=== PATIENT | female | born 1975 | race Caucasian/White ===

== ENCOUNTER 2017-09-23 15:15 | Inpatient (IN) | payer BC ==
[2017-09-23 15:39] VITALS: BMI 39.1
--- NOTE | 2017-09-26 21:27 | HP ---
DATE OF ADMISSION: 09/27/2017 CHIEF COMPLAINT: Menorrhagia and anemia. HISTORY OF PRESENT ILLNESS: This is a 42-year-old G2, P2 with an enlarged 16-week size uterus and hi story of menorrhagia to anemia, transfusion x1 earlier this year, unresponsive to medical management as well as likely endometrial polyp on endometrial biopsy that was otherwise benign. Patient has tri ed oral contraceptives as well as Lysteda and has monthly menses that last approximately 10 days. CURRENT MEDICATIONS: Vitamin B12, fiber supplements, iron b.i.d. PAST MEDICAL HISTORY: Obesity and anemia. GYNECOLOGIC HISTORY: No abnormal Paps, no STDs. PAST SURGICAL HISTORY: x2 and tubal ligation. INFORMATION CLERK HISTORY: She is G2, P2, largest baby is 10 pounds 6 ounces. SOCIAL HISTORY: Negative x3. FAMILY HISTORY: Negative. ALLERGIES: No known drug allergies. PHYSICAL EXAMINATION: VITAL SIGNS: Blood pressure 140/80, pulse 76, respirations 18, weight is 257 pounds, BMI is 40.3. GENERAL: No acute distress. CARDIAC: Regular rate and rhythm. LUNGS: Clear to auscultation bilaterally. ABDOMEN: Soft, obese, nontender, nondistended. EXTREMITIES: No edema, cyanosis or clubbing. ASSESSMENT AND PLAN: A 42-year-old G2, P2 with an enlarged uterus, menorrhagia to anemia, unresponsi ve to medical management desiring definitive management with hysterectomy. She has been counseled on robotic total laparoscopic hysterectomy, possible bilateral salpingo-oophorectomy ideally would pres erve both ovaries as long as normal appearing and plan bilateral salpingectomy. Discuss risks of george ede to include bleeding, infection, damage to surrounding structures, conversion to open procedure. I also discussed possible need for contained morcellation secondary to patient's prior C-sections an d the uterine size. Patient understands and wishes to proceed. All questions were answered. Pre an d postoperative care was discussed. She will follow up with me in 2 weeks' postoperative time.
[2017-09-27] MEDS ORDERED: Lidocaine 1% w/Epinephrine 1:200K 30 ML VIAL ONE (08:36)
[2017-09-27] MEDS ORDERED: CEFAZOLIN/Water 2 GM/20 ML SYRINGE ONE (08:58)
[2017-09-27] MEDS ORDERED: Bupivacaine/Epinephrine 0.25% 30 ML VIAL ONE (10:24)
[2017-09-27] MEDS ORDERED: Midazolam HCl 2 mg/2 ml Vial ONE (10:30)
[2017-09-27] MEDS ORDERED: Scopolamine 1.5 mg/72 hour Patch ONE (10:30)
[2017-09-27] MEDS ORDERED: Fentanyl 100 MCG/2 ML VIAL ONE ×2 (10:34→14:11)
[2017-09-27] MEDS ORDERED: Promethazine HCl 25 MG/ML VIAL ONE (14:11)
[2017-09-27] MEDS ORDERED: Ondansetron HCl/PF 4 MG/2 ML Vial IVP PRN ×2 (14:14→15:44)
[2017-09-27] MEDS ORDERED: Promethazine HCl 25 MG/ML VIAL SLOW IVP PRN (14:14)
[2017-09-27] MEDS ORDERED: Promethazine HCl 25 MG/ML VIAL IM PRN ×2 (14:14→15:44)
[2017-09-27] MEDS ORDERED: diphenhydrAMINE 25 MG CAP PO PRN (15:44)
[2017-09-27] MEDS ORDERED: HYDROcodone/Acetaminophen 5/325 mg Tablet PO PRN ×2 (15:44)
[2017-09-27] MEDS ORDERED: Bisacodyl 10 MG SUPP PR PRN (15:44)
[2017-09-27] MEDS ORDERED: Simethicone Chewable 80 MG TAB PO PRN (15:44)
[2017-09-27] MEDS ORDERED: Zolpidem Tartrate 5 MG TAB PO PRN (15:44)
[2017-09-27] MEDS ORDERED: Acetaminophen 325 MG TAB PO PRN (15:44)
[2017-09-27] MEDS ORDERED: Morphine 5 mg/5 ml in 0.9% NaCl/PF SYRINGE SLOW IVP PRN (15:44)
[2017-09-27] MEDS: Ketorolac Tromethamine 30 MG/ML VIAL IVP SCH ×2 (17:02→22:54)
[2017-09-27] MEDS: Lactated Ringer's 1,000 ML IV SCH ×2 (17:02→22:02)
[2017-09-27] MEDS ORDERED: Ketorolac Tromethamine 30 MG/ML VIAL ONE (17:18)
[2017-09-27] MEDS ORDERED: Ondansetron HCl/PF 4 MG/2 ML Vial ONE (17:18)
[2017-09-27] MEDS ORDERED: PHENYLEPHRINE-NS 100 MCG/ML 10 ML SYRINGE ONE (17:18)
[2017-09-27] MEDS ORDERED: Glycopyrrolate 0.2 MG/ML 5 ML SYRINGE ONE (17:18)
[2017-09-27] MEDS ORDERED: Dexamethasone 20 MG/5 ML VIAL ONE (17:18)
[2017-09-27] MEDS ORDERED: Propofol 200 MG/20 ML VIAL ONE (17:18)
[2017-09-27] MEDS ORDERED: Vecuronium 10 MG VIAL ONE (17:18)
[2017-09-27] MEDS ORDERED: Docusate Calcium (SURFAK) 240 MG CAP PO SCH (21:00)
[2017-09-28 03:48] VITALS: BP 96/53
[2017-09-28] MEDS: Ketorolac Tromethamine 30 MG/ML VIAL IVP SCH (05:13)
[2017-09-28 06:38] LABS: Hemoglobin 10.1 g/dL (12.0-16.0); Mean Corpuscular HGB CONC 31.8 g/dL (32.0-36.0); Mean Corpuscular Hemoglobin 27.5 pg (27.0-31.0); Mean Corpuscular Volume 86.3 fl (81.0-99.0); Mean Platelet Volume 8.1 fL (7.4-10.4); Platelet Count 395 thou/uL (130-400); RBC Distribution Width 13.8 % (11.5-14.5); Red Blood Cell (RBC) Count 3.66 mill/uL (4.20-5.40); White Blood Cell (WBC) Count 13.2 thou/uL (4.8-10.8)
[2017-09-28 08:19] VITALS: TEMP 97.4
[2017-09-28] MEDS: Lactated Ringer's 1,000 ML IV SCH (09:05)
--- NOTE | 2017-09-28 10:52 | DIS ---
DATE OF ADMISSION: 09/27/2017 DATE OF DISCHARGE: 09/28/2017 ADMISSION DIAGNOSES: 1. Menorrhagia. 2. Enlarged uterus. 3. Anemia. DISCHARGE DIAGNOSES: Status post robotic assisted total laparoscopic hysterectomy, bilateral salping ectomy, lysis of adhesions, and extracorporeal morcellation. DISCHARGE CONDITION: Stable. ATTENDING PHYSICIAN: Di Duncan M.D. CONSULTATIONS: None. PROCEDURES: On 09/27/2017, patient underwent robotic-assisted total laparoscopic hysterectomy, bilat eral salpingectomy, lysis of adhesions, and extracorporeal morcellation. HISTORY AND PHYSICAL EXAMINATION: Please see previously dictated H&P. HOSPITAL COURSE: A 42-year-old presented today to undergo surgery as above. She had a noncomplicate d procedure with an estimated blood loss of 100 mL. Postoperatively, the patient's hemoglobin was 10 .1. She had no symptoms of ongoing bleeding or anemia and her vital signs remained within normal webb its other than a mild tachycardia and a temperature max of 99.8 overnight. However, the patient aileen ined afebrile and pulse was in the 60s on the a.m. of postoperative day #1. Her other vital signs ar e within normal limits. She had good urine output and was able to void and tolerate a regular diet a s well as ambulate prior to discharge. Her pain was well controlled on p.o. pain meds and her final pathology is pending at the time of discharge. Her incisions were clean, dry, and intact and she had minimal vaginal spotting. She is dispositioned for discharge with follow up with me in 2 weeks post operative time.
--- NOTE | 2017-09-28 14:08 | OP ---
DATE OF OPERATION: 09/27/2017 PREOPERATIVE DIAGNOSES: 1. Menorrhagia. 2. Enlarged uterus. 3. Anemia. POSTOPERATIVE DIAGNOSES: 1. Menorrhagia. 2. Enlarged uterus. 3. Anemia. PROCEDURE: Robotic-assisted total laparoscopic hysterectomy, bilateral salpingectomy, lysis of adhes ions, and an extracorporeal morcellation. ANESTHESIA: General endotracheal. ATTENDING SURGEON: Di Duncan M.D. ROAD DESIGN ENGINEER: Meggan Boyer M.D. ESTIMATED BLOOD LOSS: 100 mL. INTRAVENOUS FLUIDS: Two liters crystalloid. URINE OUTPUT: 400 mL of clear urine. PATHOLOGY: Uterus, cervix, bilateral fallopian tubes. DRAINS: Dent catheter. COMPLICATIONS: None. FINDINGS: On exam under anesthesia, a uterus that was 16 weeks' size fixed to the anterior abdominal wall. Cervix was normal appearing. The uterus sounded to 15 cm. On intra-abdominal survey with om ental adhesions to the anterior abdominal wall and to the uterus. The uterus was densely adherent to the anterior abdominal wall and the bladder, as well as the right pelvic sidewall. The upper abdome n was normal. OPERATIVE TECHNIQUE: The patient was taken to the operating room where general anesthesia was obtain ed without difficulty. The patient was prepped and draped in a sterile fashion in the dorsal lithoto my position. After timeout was performed, a Dent catheter was placed in the bladder. Speculum was placed in the vagina. The anterior lip of the cervix was grasped with single tooth tenaculum. The u terus was sounded to 15 cm. The cervix was progressively dilated with Didier dilators and the KAE man ipulator was assembled with a 12 cm tip and a 4 cm colpotomizer ring. The manipulator tip was insert ed to the uterine fundus. The balloon was inflated. Speculum was removed and the colpotomizer ring was advanced to fit snugly around the cervix after the tenaculum was removed. The vaginal occluder b alloon was then inflated, legs were placed in low lithotomy, attention was turned to the abdomen. Approximately 3 fingerbreadths above the umbilicus was infiltrated with 0.5% Marcaine with epinephrin e. A 12 mm skin incision was made and a Veress needle was passed into the abdomen noting an opening pressure of 5 mmHg and pneumoperitoneum was obtained without difficulty. The Veress needle was remov ed and a 12 mm trocar was passed into the abdomen confirming placement with the robotic camera. Tren simonnburg was obtained and the above findings were noted. The lower quadrant 8 mm robotic trocars we re placed after infiltrating with 0.5% Marcaine with epinephrine under direct visualization without d ifficulty. The right upper quadrant 11 mm phlebotomy lab assistant port was placed as well under direct visualizati on after infiltrating with 0.5% Marcaine with epinephrine. At that time, the robot was docked. The right robotic arm contained the monopolar scissors, left robotic arm contained a fenestrated bipolar. Using traction on the omental adhesions to the anterior abdominal wall, these were incised close th e abdominal wall, ensuring a clear window and hemostasis with the fenestrated. The omentum that was adherent to the uterus was over the fundus and draped over and was easily removed with the use of cau cody and the scissors. Some filmy adhesions of the upper portion of the uterus to the anterior abdom inal wall was easily slid transparent and these were incised with the scissors to allow the uterus to come back into a physiologic position. This was carried down ensuring a clear window by slipping th e fenestrated behind and incising over with the scissors until the level close to the bladder flap wa s met. At that time, attention was turned to the left adnexa where the fallopian tube was grasped an d elevated and the mesosalpinx was clamped, cauterized and transected and the fallopian tube was then removed out of the abdomen. The uteroovarian was cauterized multiple times and transected with the scissors and taken down to the level of the round ligament that was cauterized and transected. This opened up the anterior and posterior leaf of the broad ligament. The posterior leaf was easily visib le and the uterus manipulated anteriorly very well, therefore, the posterior leaf of the broad ligame nt was incised ensuring a clear window underneath with the fenestrated down to the internal cervical os. The anterior portion of the broad ligament was then carefully incised as these adhesions of the peritoneum obscured the bladder, as well as the anterior cul-de-sac. Carefully layering out tissue, these were incised and taken across the area of the bladder flap where an area of dense adhesions was noted to the patient's prior scar. A plane was identified; however, this was densely adhe rent and was not easily coming down with an incise and push method. Therefore, a window was attempte d to be made laterally on the patient's left side to identify the bladder. At this point, the bladde r was back filled and noted that the bladder did encroach closely upon the lower uterine segment as w ell as the cervix. Once as much tissue was able to be safely dissected down anteriorly with scissors , attention was then turned to the right side. The right side was less mobile as it was adherent to the pelvic sidewall. The fallopian tube was grasped and elevated and the mesosalpinx was sequentiall y cauterized and transected and then removed out of the abdomen. The utero-ovarian was cauterized mu ltiple times and transected and taken down to the level of the round ligament, ensuring that I did no t incise too close to the uterus as this would cause additional bleeding. Once the round ligament w as incised and hemostasis was secured with the fenestrated, the posterior leaf was dropped down and t he anterior leaf was incised as well. The ureter was noted at this time and was not near the area of dissection. The vessels were able to be easily skeletonized on that side, the vessels were very eng orged and a window was made after the adhesions were taken down from the pelvic sidewall carefully la yering out underneath the bladder flap. The bladder was back filled once again and there was an area of scar noted of the bladder to the lower uterine segment and therefore this was incised and I caref ully layered out to ensure no bladder injury occurred while the bladder was inflated. This took appr oximately 20 minutes to dissect off the bladder flap. Once the bladder had been taken down adequatel y, the pubocervical fascia was scored on and the bladder was dissected down below the level of the co lpotomizer ring bluntly. Hemostasis was achieved with the fenestrated of the bladder pillars and acc essory vessels to the patient's large uterus. At that time skeletonization was performed of the left uterine pedicle and cautery of the vessels with the fenestrated. The same was carried out on the ri t side and at that time, the right vessels were incised after adequate cautery and these were seque ntially cauterized and transected and the pedicle was dissected down below the level of the colpotomi zer ring. The same was performed on the left side. Posterior colpotomy was started with and the ure ters were again noted to be running well away from the area of the incision. The colpotomy was promise ed around laterally to the apices where the fenestrated was slipped underneath and additional hemosta sis was achieved of perforating vessels. The anterior colpotomy was then performed and carried aroun d to the right apex, again the fenestrated was slipped underneath and colpotomy was completed. At t hat time, the uterus was attempted to be removed from the vagina, but clearly it was too enlarged to do this, therefore the manipulator was removed out of the uterus and the uterus was placed in the upp er abdomen. Hemostasis was achieved of the vaginal cuff and the vaginal cleft was closed with a 2-0 Stratafix suture in a running fashion incorporating vaginal mucosa and posterior peritoneum in each b ite with excellent closure and hemostasis noted. Irrigation and suction of the pelvis was performed and noted hemostasis. At that time, the robot was undocked and the umbilical port incision was exten ded to 3 cm of the fascia using retractors to identify the fascia and the Tony scissors to incise on the fascia. Pneumoperitoneum was maintained during this time to minimize risk to underlying structur es. At that time, the port was removed and the large Gelpoint Wesley retractor was placed into the i ncision and the 12 mm trocar was placed into the Gelpoint and this was fixed to the Wesley retractor. The large medical retrieval bag was placed into the abdomen prior to affixing the Gelpoint on the A carole. This was tied with 2 silk ties and this was inserted face up. Once the Gelpoint was fixed, t he camera was inserted and the uterus was moved close to the applied medical bag. The silk sutures w ere then clipped and placed inside the bag and the bag deployed opened and initially the uterus went directly into the bag and the bag was grasped and brought out of the Gelpoint; however, upon bringing the bag up to the Gelpoint, it was noted that the uterus had fallen out of the bag and therefore, th e bag was re-rolled and placed back into the abdomen, situating the bag open side up and the Gelpoint was then reaffixed and a camera was placed and again the uterus was placed into the bag. The bag ed ges were secured up around the specimen and the tab was located and pulled up to the Gelpoint; pop bermudez, once again the specimen was noted to have fallen out of the bag. At this time a third try of retr ieving the specimen into the bag in a similar fashion; however, at this point, the graspers with teet h were used to secure the bag on both sides and bring them into the midline where the specimen was no t able to fall out and an additional 5 mm port was placed into the Gelpoint for added manipulation. The tab was then removed while holding the bag closed and the bag was delivered through the Gelpoint. Gelpoint was removed and the speculum was noted to be in the bag. At that time, the Wesley was rem emma out of the incision and placed on the anterior side of the bag and morcellation using a C-incisi on technique was performed of the tissue. The tissue was noted to be extremely dense and hard to inc ise through and morcellation took an extended period of time, approximately 40 additional minutes. T his was brought out in pieces and this was in a contained manner where no free cellular spillage was encountered and once the entire specimen had been removed the Wesley was removed, the bag was removed out of the abdomen and the fascia was closed with an 0 Vicryl in a running fashion and the skin was closed with 4-0 Monocryl in a subcuticular fashion and Dermabond was applied. The vaginal cuff was c hecked and noted to be hemostatic. The patient tolerated the procedure well. Sponge, lap, and needl e counts were correct x2. The patient was taken to recovery room in stable condition.
[2017-10-03] MEDS ORDERED: Ibuprofen 800 MG TAB PO SCH (06:00)
== END 2017-09-28 10:19 | disposition home or self-care (01) | DRG 743 ==
LOC: SURG A 09-27 08:21 → 3SE 09-27 15:44
PROVIDERS: ADMIT Student in an Organized Health Care Education/Training Program; ATTEND Student in an Organized Health Care Education/Training Program
PROC: 0UT9FZZ Resection of Uterus, Via Natural or Artificial Opening With Percutaneous Endoscopic Assistance (ICD-10-PCS; principal; 2017-09-27)
PROC: 0UT7FZZ Resection of Bilateral Fallopian Tubes, Via Natural or Artificial Opening With Percutaneous Endoscopic Assistance (ICD-10-PCS; 2017-09-27)
PROC: 8E0W4CZ Robotic Assisted Procedure of Trunk Region, Percutaneous Endoscopic Approach (ICD-10-PCS; 2017-09-27)
DX: N92.0 Excessive and frequent menstruation with regular cycle (principal); D64.9 Anemia, unspecified; Z98.51 Tubal ligation status; N80.0 Endometriosis of uterus
CPT/HCPCS: 36415; 85027; 88307; A4216; J1100; J1885; J2250; J2405; J2550; J2704; J3010

== ENCOUNTER 2017-09-23 15:20 | Outpatient (CLI) | payer BC ==
[2017-09-23 15:45] LABS: Hemoglobin 11.9 g/dL (12.0-16.0); Mean Corpuscular HGB CONC 32.8 g/dL (32.0-36.0); Mean Corpuscular Hemoglobin 27.9 pg (27.0-31.0); Mean Platelet Volume 8.3 fL (7.4-10.4); Platelet Count 360 thou/uL (130-400); RBC Distribution Width 13.6 % (11.5-14.5); Red Blood Cell (RBC) Count 4.28 mill/uL (4.20-5.40); White Blood Cell (WBC) Count 7.4 thou/uL (4.8-10.8)
[2017-09-23 15:52] LABS: BHCG - Serum Negative (NEGATIVE); Pregs Control Background? CLEAR/WHITE (CLR/WHITE); Pregs Control Bar Appear? YES (CONTROL BAR)
== END 2017-09-23 15:21 | disposition home or self-care (01) ==
LOC: LABBT 15:20
PROVIDERS: ATTEND Student in an Organized Health Care Education/Training Program
DX: Z01.812 Encounter for preprocedural laboratory examination (principal); N92.1 Excessive and frequent menstruation with irregular cycle; N84.0 Polyp of corpus uteri; N83.8 Other noninflammatory disorders of ovary, fallopian tube and broad ligament
CPT/HCPCS: 84703; 85027; 86850; 86900; 86901

== ENCOUNTER 2017-10-28 09:24 | Outpatient (CLI) | payer BC ==
[2017-10-28] MEDS ORDERED: Iopamidol 370 76% 100 ML VIAL ONE (13:17)
[2017-10-28] MEDS ORDERED: Iopamidol 370 76% 50 ML VIAL FS ONE (13:17)
--- NOTE | 2017-10-28 15:22 | CT ---
CT CYSTOGRAM ABDOMEN AND PELVIC CT SCAN WITH AND WITHOUT IV CONTRAST AND MULTIPHASE IMAGING: HISTORY: A 42-year-old female with postsurgical complications following a recent hysterectomy with concern for vesiculovaginal or ureterovaginal fistula. FINDINGS: Initially, a noncontrast abdomen and pelvic CT scan was performed. This was followed by a CT cystogr am in which iodinated contrast media was introduced through a Dent catheter into the bladder. Appro ximately 300 cc was instilled. There is no evidence for extravasation or sinus or fistulous tract de monstrated. IMPRESSION: Unremarkable CT cystogram. No evidence of sinus or fistulous tract demonstrated from the bladder. ABDOMEN AND PELVIC CT SCAN WITH AND WITHOUT IV CONTRAST WITH MULTIPHASE IMAGING: The lung bases are clear. The liver, gallbladder, pancreas, spleen, and right adrenal gland are unre markable. There is a 1.6 x 2.1 cm diameter left adrenal mass which has attenuation coefficients whic h are indeterminate for definitive adrenal adenoma. Consider 6-month followup noncontrast-only exami nation of the abdomen to evaluate for any potential change in size of this left adrenal mass is recom mended. There is fairly marked right renal hydronephrosis with dilatation of the right upper collect ing system and right ureter seen down into the level of the pelvis. There is some fat stranding in t he region around and somewhat posterior to the bladder and around the vaginal cuff extending to the p elvic sidewall more so on the right side, evidence for some nonspecific postoperative change. There is an approximately 2.9 cm diameter right ovarian cyst and an approximately 2.3 cm left ovarian cyst. On the delayed images, the dilated ureter is seen extending down into the right upper pelvis and is only faintly seen as it descends closer to the bladder is not actually seen within the bladder or co nnecting to the bladder. In addition, there is an area that is suspicious for a filling defect in th e upper right ureter, this does appear to be associated with some kinking, but there does appear to b e a persistent intraluminal filling defect. This is not calcified and does not have a definitive sari earance for a stone. There is no evidence for a pelvic abscess or drainable fluid collection. IMPRESSION: Dilated right upper renal collecting system and right ureter seen down into the pelvis extending into some area of what is presumed to be some postoperative fat stranding, but is not definitely seen def initively entering the bladder despite delayed imaging out to 20 minutes. Status post hysterectomy. Small bilateral ovarian cysts. Normal-appearing appendix. No evidence for abscess or drainable flu id collection in the pelvis. Left adrenal mass, indeterminate as far as being a potential adenoma. Consider 6-month followup noncontrast-only examination of the abdomen to evaluate for any potential c hange in size. Probable intraluminal filling defect in the upper right ureter of uncertain etiology. Given evidence for distal right ureteral obstruction, a followup urologic consult and right-sided ret rograde pyelogram is recommended. CODE T POS: THU
== END 2017-10-28 09:25 | disposition home or self-care (01) ==
LOC: RAD 09:24 → CT 09:25
PROVIDERS: ATTEND Student in an Organized Health Care Education/Training Program
DX: T81.9XXA Unspecified complication of procedure, initial encounter (principal); N83.202 Unspecified ovarian cyst, left side; N83.201 Unspecified ovarian cyst, right side; N28.89 Other specified disorders of kidney and ureter; N28.82 Megaloureter; Z90.710 Acquired absence of both cervix and uterus
CPT/HCPCS: 74178

== ENCOUNTER 2017-10-31 11:40 | Outpatient (CLI) | payer BC ==
[2017-10-31 13:34] LABS: Hemoglobin 10.8 g/dL (12.0-16.0); Mean Corpuscular HGB CONC 31.6 g/dL (32.0-36.0); Mean Corpuscular Hemoglobin 25.9 pg (27.0-31.0); Mean Corpuscular Volume 82.1 fl (81.0-99.0); Mean Platelet Volume 8.1 fL (7.4-10.4); Platelet Count 409 thou/uL (130-400); RBC Distribution Width 13.9 % (11.5-14.5); Red Blood Cell (RBC) Count 4.18 mill/uL (4.20-5.40); White Blood Cell (WBC) Count 6.5 thou/uL (4.8-10.8)
[2017-10-31 13:36] LABS: Bilirubin Negative (Negative); Blood, Urine Trace (Negative); Clarity CLOUDY (Clear); Glucose, Urine (Dipstick) Negative (Negative); Leukocyte Large (Negative); Nitrite Positive (Negative); Protein, Urine (Dipstick) Negative (Neg-Trace); Specific Gravity, Urine 1.015 (1.002-1.036); Urobilinogen 0.2 mg/dL (0.2-1.0)
[2017-10-31 13:38] LABS: Bacteria/HPF 4+ HPF (None Seen); Pathc Cast-AUWi Flag 1.06 (0-2.49); RBC/HPF 0-3 HPF (0-3); Squamous Epithelial 0-3 HPF (0-3)
[2017-10-31 13:44] LABS: PTT 30.7 SEC (22.9-36.1); Prothrombin Time 13.6 SEC (12.0-14.7)
[2017-10-31 14:34] LABS: Anion Gap 14 mmol/L (10-20); BUN (Urea Nitrogen) 14 mg/dL (7.0-18.7); Calc. Creatinine Clearance 0 mL/min (70-130); Calcium 9.2 mg/dL (7.8-10.44); Carbon Dioxide 23 mmol/L (22-29); Chloride 107 mmol/L (98-107); Estimated GFR-MDRD 81; Glucose 74 mg/dL (70-105); Sodium 140 mmol/L (136-145)
--- NOTE | 2017-11-01 06:22 | EKG ---
Test Reason : Blood Pressure : / mmHG Vent. Rate : 076 BPM Atrial Rate : 076 BPM P-R Int : 176 ms QRS Dur : 090 ms QT Int : 392 ms P-R-T Axes : 042 066 041 degrees QTc Int : 441 ms Normal sinus rhythm with sinus arrhythmia Cannot rule out Anterior infarct , age undetermined (Poor R wave progression.) Abnormal ECG No previous ECGs available Confirmed by SHAHIDA ALFORD ([id number]) on 11/01/2017 6:21:40 AM Referred By: HILARY Confirmed By:SHAHIDA ALFORD
== END 2017-10-31 11:41 | disposition home or self-care (01) ==
LOC: LABBT 11:40
PROVIDERS: ATTEND Urology
DX: Z01.818 Encounter for other preprocedural examination (principal); N13.30 Unspecified hydronephrosis; N82.1 Other female urinary-genital tract fistulae
CPT/HCPCS: 80048; 81001; 85027; 85610; 85730; 87077; 87086; 87186; 93005; 93010

== ENCOUNTER 2017-11-03 06:56 | Day surgery (SDC) | payer BC ==
[2017-10-31 12:21] VITALS: BMI 39.1
[2017-11-03] MEDS ORDERED: Levofloxacin 500 mg/D5W 100 ml Premix Bag ONE (07:59)
[2017-11-03] MEDS ORDERED: Fentanyl 100 MCG/2 ML VIAL ONE (09:13)
[2017-11-03] MEDS ORDERED: HYDROmorphone 0.5 MG/0.5 ML SYRINGE ONE (09:13)
[2017-11-03] MEDS ORDERED: Promethazine HCl 25 MG/ML VIAL ONE (09:14)
[2017-11-03] MEDS ORDERED: Iothalamate Meglumine 60% 50 ML VIAL FS ONE (09:35)
--- NOTE | 2017-11-03 10:50 | OP ---
DATE OF PROCEDURE: 11/03/2017 SERVICE: Urology. SURGEON: Silvestre Starkey M.D. 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 POSTOPERATIVE DIAGNOSIS: Right ureterovaginal fistula with mild stenosis. PROCEDURE PERFORMED: Cystoscopy with right retrograde pyelogram, right diagnostic ureteroscopy and placement of a 6 x 24 double-J stent. INDICATIONS FOR PROCEDURE: Mrs. Webb is a 42-year-old white female who recently underwent a hysterectomy. The procedure went well; however, the patient developed vaginal leakage postoperatively, which was concerning for a possible vesicovaginal fistula. Cystogram workup was negative; however, the patient had persistent leakage and hydronephrosis on a CT indicated that she may have a very likely ureterovaginal fistula. As such, she is being brought to the operating room to confirm diagnosis with possibility of dilation of a stricture if it is encountered. All risks and benefits of the surgery had been discussed and she has agreed to proceed forward. DESCRIPTION OF PROCEDURE: After identification of arm band and verification of consent, the patient was brought back to the operating room where she underwent general anesthesia with an LMA. She was then placed in dorsal lithotomy position, and prepped and draped in usual sterile fashion. After appropriate timeout, a lubricated 22-Ukrainian rigid cystoscope was introduced per urethra into the bladder. A full cystoscopy was performed which demonstrated normal bladder with squamous metaplasia at the trigone. Both ureters were in their orthotopic location and both had clear efflux of urine. There were no fistulas , erythematous patches or other concerning areas to indicate that the patient has a vesicovaginal fistula present. A cone-tip catheter was then first placed into the left ureter to evaluate the left ureter completely. A left retrograde pyelogram was performed, which demonstrated normal caliber slender left ureter with normal calices without hydronephrosis. The cone-tip catheter was then transferred to the right ureteral orifice where the same retrograde pyelogram was performed, this demonstrated a slender distal ureter with a tapering point followed by a dilated proximal ureter and hydronephrosis. At the transition point there was contrast which extravasated towards the vagina confirming a ureterovaginal fistula. A sensor wire was then placed through the right ureter up to the level of the renal pelvis and the cystoscope was removed and transferred out for a semirigid ureteroscope. The sensor wire was affixed to the drapes as a safety wire. Semirigid ureteroscopy was then performed into the distal ureter. There was a mild area of stenosis, which was able to be navigated past using the ureteroscope and Amplatz Super Stiff wire. This resulted in adequate dilation of the narrowed area. On pull back ureteroscopy, the fistulous tract was identified and there is a hole on the medial aspect of the right ureter. A retrograde pyelogram had also confirmed there was a fistulous tract present. As such, the ureteroscope was then withdrawn and a cystoscope was backloaded over the sensor wire back into the bladder. A 6 x 24 double-J stent was advanced over the sensor wire up to the level of the renal pelvis. The wire was then removed using a good curl in the renal pelvis and good curl in the bladder. The bladder was then emptied and the cystoscope removed. The patient had a 16-Ukrainian Dent catheter placed with 10 mL of sterile water in the balloon. The patient was then awakened and taken to PACU for recovery in stable condition. COMPLICATIONS: None. ESTIMATED BLOOD LOSS: Minimal. RETAINED TUBES AND DRAINS: None. SPECIMENS: None. DISPOSITION: The patient will be discharged home and follow up with me in approximately 1-2 weeks for a postoperative check. We will leave her catheter in for approximately 4 weeks with ureteral stent, at which time we will remove both the stent and the catheter and see how she does and follow up with repeat ultrasound to check for hydronephrosis and evaluate her for leakage. SARITA
--- NOTE | 2017-11-03 11:05 | RAD ---
RETROGRADE PYELOGRAM: Date: 11/03/17 HISTORY: Stent placement. FINDINGS: A total of 3 images are presented for interpretation. These show contrast injected into a nondilated left collecting system, as well as contrast injected into slightly dilated right ureter. The right co llecting system is not completely filled on these exams, but there is placement of a right ureteral s tent. IMPRESSION: Right ureteral stent placement. POS: THU
== END 2017-11-03 13:20 | disposition home or self-care (01) ==
LOC: SDC 06:56
PROVIDERS: ATTEND Urology
PROC: 0T768DZ Dilation of Right Ureter with Intraluminal Device, Via Natural or Artificial Opening Endoscopic (ICD-10-PCS; principal; 2017-11-03)
DX: N82.1 Other female urinary-genital tract fistulae (principal); N13.30 Unspecified hydronephrosis; Q62.10 Congenital occlusion of ureter, unspecified; N32.89 Other specified disorders of bladder; Z79.899 Other long term (current) drug therapy; Z90.710 Acquired absence of both cervix and uterus; Z98.890 Other specified postprocedural states
CPT/HCPCS: 74420; C1769; J1170; J1956; J2550; J3010; Q9961

== ENCOUNTER 2018-01-11 07:32 | Outpatient (CLI) | payer BC | END 2018-01-11 07:33 | disposition home or self-care (01) | LOC: BICULT 07:32 | PROVIDERS: ATTEND Urology | DX: N82.1 Other female urinary-genital tract fistulae (principal) | CPT/HCPCS: 76770 ==

== ENCOUNTER 2018-05-02 07:31 | Outpatient (CLI) | payer BC ==
[~2018-05-02 07:31] MED LIST: Gadobenate Dimeglumine 529 MG/1 ML (20ML VIAL) ONE
== END 2018-05-02 07:32 | disposition home or self-care (01) ==
LOC: BICMRI 07:31
PROVIDERS: ATTEND Urology
DX: E27.9 Disorder of adrenal gland, unspecified (principal); D35.02 Benign neoplasm of left adrenal gland
CPT/HCPCS: 74183; A9579

== ENCOUNTER 2019-09-24 07:34 | Outpatient (CLI) | payer BC ==
--- NOTE | 2019-09-24 10:02 | MRI ---
MRI ABDOMEN WITH AND WITHOUT IV COTNRAST: HISTORY: Left adrenal mass. FINDINGS: Correlation is made with the CT scan of 10/28/2017. The liver, spleen, pancreas, right adrenal gland, right kidney, and gallbladder appear normal. There is a 6 mm nonenhancing small lesion in then left anterior renal cortex consistent with cyst. There is a 2.5 cm left adrenal nodule with signal dropout on [id number] imaging. The adrenal to sp luis f CSI ratio measures 0.51 (CSI ratio of less than 0.71 indicates a lipid-rich adenoma) and adrenal signal intensity index of 48.6% (signal intensity index greater than 16.5% indicates a lipid-rich ad enoma). No free fluid or lymphadenopathy is seen. There is no evidence of aneurysmal dilatation of the abdom inal aorta. The bone marrow signal is normal. IMPRESSION: Left adrenal adenoma. POS: OFF
== END 2019-09-24 07:35 | disposition home or self-care (01) ==
LOC: SCSMRI 07:34
PROVIDERS: ATTEND Urology
DX: E27.8 Other specified disorders of adrenal gland (principal); D35.02 Benign neoplasm of left adrenal gland
CPT/HCPCS: 74183